=== PATIENT | male | born 1975 | race Caucasian/White ===

== ENCOUNTER 2017-01-22 15:31 | Inpatient (IN) | payer SELFPAY ==
[~2017-01-22] VITALS: Ht 170.2 cm; Wt 61.5 kg
--- NOTE | 2017-01-25 08:25 | CO ---
ADMIT: 01/22/2017 RM/LOC: 303 [facility] MR#: [id number] [facility]#: [id number] 2620 [facility] [address] [place], [place] [address] SAMUEL FAIR 707 [facility] [address] [place] [address] Consultation SEX: M AGE: 41 : 1975 DATE OF CONSULTATION: 01/22/2017 ATTENDING PHYSICIAN: Mamie San CONSULTING PHYSICIAN: Fernandez Cardoza DO REASON FOR CONSULTATION: Hyponatremia, acute kidney injury. HISTORY OF PRESENT ILLNESS: This is a 41-year-old, male patient, who was brought to the Emergency Department after roommate noted that he was having seizure-like activity. The patient reports that he had been lying in bed over the last 2 weeks, not really mobile and has been having some back pain and discomfort. At presentation when Dr. Sna's initial evaluation, he was confused. He is able to answer basic questions in broken Vietnamese. He does use beer and alcohol on a daily basis. He admits to a prior heavy alcohol use. PAST MEDICAL HISTORY: Significant for cataract present in his right eye. MEDICATIONS: No medications reported. REVIEW OF SYSTEMS: He denies any current nausea or vomiting. He reports generalized weakness and shaking in his legs. No chest pain or shortness of breath. PHYSICAL EXAMINATION: GENERAL: He arouses and answers questions. He is cachectic in general appearance. VITAL SIGNS: Show a blood pressure of 170/65, pulse of 101, saturation of 95%. EYES: He does have a right obvious and visible cataract. HEART: Regular. LUNGS: Clear. ABDOMEN: Soft. EXTREMITIES: He has no edema. LABORATORY DATA: His white count 7.3, hemoglobin 7.5, platelets 120,000. His BUN 42, creatinine 5.3, potassium 2.3, CO2 on electrolytes was 38. Serum osmolality of 263, urine osmolality is pending. Alcohol level 16. IMPRESSION: ADMIT: 01/22/2017 RM/LOC: 303 [facility] MR#: [id number] 26[address] [facility] [address] [place], [place] [address] SAMUEL FAIR Tristan [address] [facility] [address] [place] [address] Consultation SEX: M AGE: 41 : 1975 1. Question seizure disorder. 2. Hyponatremia. 3. Hypokalemia. 4. Alcohol with sequelae including anemia, thrombocytopenia, and acute kidney injury. PLAN: He is being admitted to the intensive care unit. Dr. San has made arrangements for alcohol withdrawal precautions. We are going to give him normal saline and monitor his sodium closely. I am also going to give him potassium and recheck his potassium thereafter. We will recheck his creatinine and electrolytes in the morning as well. We will also check amylase, lipase, and a CK. Fernandez Cardoza DO/ lamberto JOB #: [id number] CC: Mamie San, Attending Physician Mamie San, Family Physician
--- NOTE | 2017-01-25 19:49 | HP ---
ADMIT: 01/22/2017 RM/LOC: 303 [facility] MR#: [id number] [facility]#: [id number] 2620 [facility] [address] [place], [place] [address] SAMUEL FAIR 706 [facility] [address] [place] [address] History and Physical SEX: M AGE: 41 : 1975 DATE OF SERVICE: CHIEF COMPLAINT: Seizure or confusion. HISTORY OF PRESENT ILLNESS: This is a 41-year-old, who has been staying with someone and that person reported it looks the patient was having a seizure, so they called 911. The patient was transported here. There is no one with him to give history. On arrival, he was confused, but able to answer some questions. He has been in the ER for about 2 hours now and he is able to answer more questions. He speaks broken Ukrainian. He cannot recall what happened prior to his arrival. He does report to me that he has been drinking about "5 beers a day and some whiskey." He said he has a prior history of much heavier drinking and had stopped for a while and then says "I just started again 2 weeks ago." He said he has been very weak for the last 1-2 weeks. My understanding is that he has been staying at a hotel or someone's house and he says he has been laying in bed, and he gets up to go to the bathroom, but feels shaky where he has not been doing anything else. He said he will drink juice "that is like Gatorade" and the alcohol. He has had things like canned soups or bland foods, but said he does not feel very hungry. He also told me he has not much money, cannot afford the food very often according to how he describes it. The patient said he cannot recall prior seizures. He tells me he has a history of problem with his right eye and he is going to have surgery in a couple of weeks. He goes to the [facility]. He denies any medications denies any other chronic illnesses. He did not know he was anemic, although we have labs from two years ago showing that as well. He is a fairly poor historian. MEDICATIONS: None. ALLERGIES: NONE KNOWN, THE PATIENT WAS UNSURE. SOCIAL HISTORY: He said he has been staying with someone, but has been too weak to work for about a week. He does do some sort of a job, which sounds like construction company. He denies smoking, but reported the alcohol use. Denies other drugs. He said he lived in [place] about 7 years. FAMILY HISTORY: He is unable to give. REVIEW OF SYSTEMS: Limited. GENERAL: Does not think he has had a fever. He mainly says he has been feeling weak for about 1-2 weeks and feels "shaky" when he gets up out of bed" and he has been drinking alcohol and juice. HEENT: Denies any head injury. He says his mouth feels dry. Denies any pain in his mouth. Denies trouble swallowing. He cannot see out of his right eye and describes what sounds like cataract. CARDIOPULMONARY: He reports no chest pain. Denies shortness of breath. GI: He denies feeling sick to his stomach. No vomiting. Denied diarrhea and ADMIT: 01/22/2017 RM/LOC: 303 [facility] MR#: [id number] [address] [address] SAMUEL FAIR [address] [place] [address] [address] [place] [address] History and Physical SEX: M AGE: 41 : 1975 does not report any dark stools when asked specifically. : He said he does not think he has urinated today, but he could not remember. I do not have a history of whether or not he was incontinent when he was confused at home. MUSCULOSKELETAL: He says he feels weak. Describes that his feet "shake and feel weak when I walk." Denies other tremors. Denies pain. NEUROPSYCHIATRIC: He tells me he is not depressed. Denies suicidal thoughts. He does report a chronic alcohol use with intermittent breaks for sobriety. PHYSICAL EXAMINATION: VITAL SIGNS: Blood pressures initially were 120s over 60s and the last one was 140/60. He is afebrile. Pulse in the 90s, oxygen 95% on room air. GENERAL: He is lying quietly on the gurney in no acute distress. HEENT: He has scarred face from acne. He has mild scleral icterus. There is cloudiness of the right pupil. Extraocular movements are normal. No nystagmus. Throat looks dry. Tongue appears a little bit dry up to his lips. He has a very tiny little bruised red maryanne on the tip of his tongue. Tongue extends in the midline. Cranial nerves II through XII appear intact. NECK: With normal carotid upstrokes bilaterally. LUNGS: Sound clear. HEART: Regular. I do not hear any murmur. Belly is flat, thin. I believe I am feeling liver edge right below the costal margin. I do not feel any splenomegaly. He denies pain anywhere in the belly. I do not feel any masses. Bowel sounds present. No inguinal masses. EXTREMITIES: Quite thin, almost cachectic, especially below the knees. He has dry feet and a couple of small little scrapes on his feet. No ulcers. LABORATORY AND X-RAY: White count is 7.3, hemoglobin 7.5, platelet count 120. He has mild microcytic indices, RDW is only 13.6. White count differential is unremarkable. His electrolytes show sodium of 114, potassium 2.3, chloride 52, carbon dioxide is 38, BUN 42, creatinine 5.3, glucose is 156. AST is 42, ALT 20, magnesium 2.5. His anion gap is elevated at 26 and his calcium corrected is 8.1, ethanol level is 16 mg/dL and his serum osmolality is low at 263. EKG showed sinus rhythm with prolonged SC. CT scan of the head was verbally reported to me as normal. ASSESSMENT: 1. Possible seizure. 2. Severe hyponatremia. 3. Acute renal failure. 4. Anemia. 5. Mild thrombocytopenia. 6. History of alcohol abuse. 7. Hypokalemia. PLAN: We will admit him to the ICU and start careful hydration with normal saline. We will monitor electrolytes closely. I am going to consult Nephrology and Dr. Fernandez Cardoza is covering. We will use alcohol withdrawal ADMIT: 01/22/2017 RM/LOC: 303 [facility] MR#: [id number] [address] [address] SAMUEL FAIR 707 [facility] [address] [place] [address] History and Physical SEX: M AGE: 41 : 1975 protocol. Regarding his anemia, I will check ferritin, B12, and serum iron. We will follow his blood count. I am concerned as he is hydrated that this hemoglobin will actually drop lower as it equilibrates. His glucose is little bit elevated, so we will check an A1c. He appears malnourished and albumin is 2.2. Again, we will monitor his intake as he is stabilizing, we will allow him to eat. For now, I will keep him n.p.o. Overall, he has the appearance of metabolic disorder likely secondary to chronic alcohol abuse. His liver enzymes are not elevated, but he has low platelets, anemia. We will alter the plan depending on hospital course. I did find some old labs from September of 2015 that were done here in the emergency room. Those included liver enzymes which were just slightly elevated including AST of 63, and GGT was high at 1407. His potassium then was 3.6, sodium was 135, creatinine was 1.1, and his hemoglobin at that time was 9.3 with a normal platelet count of 262. He also had hepatitis C and HIV testing done, which were all negative. We will try to obtain records from the [facility] in the morning. Mamie San MD/ lamberto JOB #: [id number] CC: Mamie San, Attending Physician Mamie San, Family Physician
[2017-01-27] MEDS ORDERED: CATAPRES-DPS0.2 MG PO (19:36)
[2017-01-27] MEDS ORDERED: CARDIZEM CD DP120 MG PO (19:37)
[2017-01-27] MEDS ORDERED: PEPCID DPS20 MG PO (19:37)
[2017-01-27] MEDS ORDERED: THERAPEUTIC MUL1 TAB PO (19:37)
[2017-01-27] MEDS ORDERED: B-COMPLEX PO (19:38)
[2017-01-27] MEDS ORDERED: FEOSOL-DPS325 MG PO (19:38)
[2017-01-27] MEDS ORDERED: TYLENOL DPS325 MG PO (19:38)
--- NOTE | 2017-02-11 21:33 | ER ---
ADMIT: 01/22/2017 RM/LOC: ER [facility] MR#: [id number] 2620 [facility] [address] [place], [place] [address] SAMUEL FAIR 707 [facility] [address] [place] [address] Emergency Room Report SEX: M AGE: 41 : 1975 DATE: 01/22/2017 HISTORY OF PRESENT ILLNESS: A 41-year-old, [facility], transferred to the Emergency Department from his residence after apparently having a seizure. He appears somewhat confused, perhaps postictal. We are unable obtain a thorough history from him. He does admit to drinking, but again he appears confused, postictal. He apparently was combative in the ambulance requiring Haldol. PHYSICAL EXAMINATION: GENERAL: Reveals a 41-year-old gentleman with some fresh blood on his lips. He is alert. HEENT: Head is atraumatic. He does have a cataract in the right eye. There is abrasion to the right buccal area of his mouth. TMs are normal. Pharynx appears normal. NECK: Supple. LUNGS: Clear to auscultation, CARDIOVASCULAR: No murmur. Tachycardia noted. ABDOMEN: Soft, nontender. Bowel tones are present. SKIN: Unremarkable. EXTREMITIES: Atraumatic. NEUROLOGICAL: He is disoriented to time and situation. Complete neurologic exam was not able to be done as he was somewhat uncooperative. EMERGENCY ROOM COURSE: A CBC and CMP were obtained. The results of which were significant for sodium of 114, and potassium of 2.3, and BUN of 42, creatinine of 5.6. His hemoglobin was 7.5, and platelets 120,000. CT scan of the head shows no acute findings. The patient is being admitted. 1. Acute renal failure. 2. Seizure likely secondary to hyponatremia. 3. Anemia. 4. Hypokalemia. 5. Thrombocytopenia. Ant Stone MD/ lamberto JOB #: [id number] CC: Shravan Terrazas MD, Attending Physician UNKNOWN, Family Physician
--- NOTE | 2017-02-24 06:44 | DS ---
ADMIT: 01/22/2017 RM/LOC: 427 [facility] MR#: [id number] [facility]#: [id number] [address] [address] SAMUEL FAIR [address] [place] [address] General Discharge Summary SEX: M AGE: 41 : 1975 ADMISSION DATE: 01/22/2017 DISCHARGE DATE: 01/26/2017 FINAL DIAGNOSES: 1. Chronic alcohol abuse and secondary metabolic encephalopathy. 2. Malnutrition, moderate. 3. Severe hyponatremia. 4. Acute renal failure. 5. Thrombocytopenia related to alcohol abuse. 6. Chronic anemia. The patient was admitted after an acquaintance observed him having some shaking activity and was concerned about seizure. He was brought in by squad. There was no next of kin, and the patient was unable to give history. On arrival, he appeared dehydrated. Sodium was only 114. Creatinine was 5.3. I consulted Nephrology for assistance with fluid and electrolyte management. He had hemoglobin of 7.5. On the following morning, he had had no witnessed seizure activity and was much more alert, feeling thirsty. We will let him start clear liquids. His sodium was up to 119 and potassium 2.9, and his creatinine was down to 4.6. We continued sodium replacement and fluid replacement for the acute kidney injury. We also continued alcohol withdrawal protocol, which had been instituted at admission. The patient met with [facility] supervisor channel process on 2nd hospital day and reported that he had been drinking up to a liter of liquor daily over the last 2 weeks. Prior to that, he had been clean for a few months, but has a long history of alcohol abuse otherwise. His plan was to go live with his brother in [place], and he did not want to pursue any treatment here locally in [place]. On 01/25, Nephrology recommended consider kidney biopsy due to findings on ultrasound, and the patient's acute kidney injury. The patient stated he did not want to do so and voiced that he understood if he had kidney disease and was not treated that could be fatal. We had long discussion, and he stated he would follow up as an outpatient. Appointment was set for [address] [facility]. Social Work worked with the patient and set up his medications. DISCHARGE MEDICATIONS: On dismissal, medications are: 1. Catapres 0.2 mg every 8 hours, ordered for #90 with 2 refills was given. 2. Also, Pepcid 20 mg daily. 3. Multivitamin daily. ADMIT: 01/22/2017 RM/LOC: 427 [facility] MR#: [id number] [address] [address] MARV, SAMUEL Tristan [address] [place] [address] General Discharge Summary SEX: M AGE: 41 : 1975 4. He can take B complex vitamin daily. 5. I also started him on Cardizem 120 mg daily for elevated blood pressures. He is to follow up at [facility] or with myself at [facility], and those appointments are pending as Social Work at this time to set up. The patient was also given my clinic number to call with any questions or concerns. I do note that we offered different means of followup and further evaluation, and he stated he would consider his options, but likely was going to move to [place]. I told him I am afraid he might not pursue any further medical care, and he promised that he would. He does have written appointment times and said he understands how to reach me and how to get to the [facility]. Mamie San MD/ lamberto JOB #: [id number] CC: Mamie San MD, Attending Physician Mamie San MD, Family Physician
== END 2017-01-26 13:15 | disposition home or self-care (01) | DRG 682 ==
LOC: ER 15:31 → 3ICU 16:45 → 4PCU 01-24 19:08
PROVIDERS: ADMIT Family Medicine
PROC: HZ2ZZZZ Detoxification Services for Substance Abuse Treatment (ICD-10-PCS; principal; 2017-01-22)
DX: N17.0 Acute kidney failure with tubular necrosis (principal); G93.40 Encephalopathy, unspecified; D69.2 Other nonthrombocytopenic purpura; D69.6 Thrombocytopenia, unspecified; E44.0 Moderate protein-calorie malnutrition; E87.1 Hypo-osmolality and hyponatremia; R56.9 Unspecified convulsions; E86.0 Dehydration; N18.3 Chronic kidney disease, stage 3 (moderate); E83.39 Other disorders of phosphorus metabolism; D64.9 Anemia, unspecified; F10.10 Alcohol abuse, uncomplicated; E87.6 Hypokalemia

== ENCOUNTER 2017-02-22 12:00 | Emergency (ER) | payer SELFPAY ==
[~2017-02-22 12:00] MED LIST: B-COMPLEX PO; CARDIZEM CD DP120 MG PO; CATAPRES-DPS0.2 MG PO; FEOSOL-DPS325 MG PO; PEPCID DPS20 MG PO; THERAPEUTIC MUL1 TAB PO; TYLENOL DPS325 MG PO
--- NOTE | 2017-03-11 08:17 | ER ---
ADMIT: 02/22/2017 RM/LOC: [facility] MR#: [id number] [address] [place] [id number] SAMUEL FAIR [address] [place] [id number] Emergency Room Report SEX: M AGE: 41 : 1975 DATE: 02/22/2017 ADDENDUM: CHIEF COMPLAINT: Seeks alcohol detox. HISTORY OF PRESENT ILLNESS: This is a 41-year-old male who did go through treatment, but he has been drinking again for the last 3 weeks. He says he drinks only about 8 beers a day, only drank a couple today, but again wants to detox. He denies any pain, denies any trauma to himself. PAST MEDICAL HISTORY: None. MEDICATIONS: None. ALLERGIES: NO KNOWN ALLERGIES. SOCIAL HISTORY: Denies any tobacco or drug use but does drink alcohol daily. FAMILY HISTORY: Noncontributory. REVIEW OF SYSTEMS: CONSTITUTIONAL: Denies any fevers, chills, or sweats. CARDIOVASCULAR and RESPIRATORY: Denies any chest pain or shortness of breath. GI and : Denies any nausea, vomiting, or diarrhea. MUSCULOSKELETAL: Denies any pain to his any extremities. All systems otherwise negative. PHYSICAL EXAMINATION: VITAL SIGNS: Blood pressure is 103/71; pulse is 97; respirations 18; temperature is 98.3, tympanic; saturation of oxygen is 99% on room air. GENERAL APPEARANCE: The patient in no acute distress and alert. HEENT: No signs of trauma to the head. Pharynx is moist. No tonsillar swelling ADMIT: 02/22/2017 RM/LOC: [facility] MR#: [id number] [address] [place] [id number] SAMUEL FAIR [address] [place] [address] Emergency Room Report SEX: M AGE: 41 : 1975 or exudate. HEART: Regular rate and rhythm. LUNGS: CTA bilateral. ABDOMEN: Soft, nontender to palpation. SKIN: Normal color, warm, and dry. No rashes noted. No signs of trauma. EXTREMITIES: No signs of trauma. Full range of motion. Due to him being asymptomatic and only seeking detox, I did call [facility], they have a male bed available. He will go to [facility] detox Center from here. No labs were done prior to discharge. CLINICAL IMPRESSION: Alcohol abuse, seeks detox. JOSE MIGUEL Calderon / Matt Buck MD / modl JOB #: [id number] CC: Matt Buck MD, Attending Physician Mario Simpson MD, Family Physician
== END 2017-02-22 12:41 | disposition home or self-care (01) ==
LOC: ER 12:00
DX: F10.10 Alcohol abuse, uncomplicated (principal)

== ENCOUNTER 2017-02-23 08:32 | Inpatient (IN) | payer OTHER ==
[~2017-02-23] VITALS: Ht 170.2 cm; Wt 62.2 kg
--- NOTE | 2017-02-24 11:09 | CO ---
ADMIT: 02/23/2017 RM/LOC: 424 [facility] MR#: [id number] [facility]#: [id number] [address] [address] SAMUEL FAIR [address] [address] Consultation SEX: M AGE: 41 : 1975 DATE OF CONSULTATION: 02/23/2017 ATTENDING PHYSICIAN: Felice Abreu CONSULTING PHYSICIAN: Benita Wong MD REASON FOR CONSULTATION: Hyponatremia and hypokalemia. HISTORY OF PRESENT ILLNESS: The patient is a 41-year-old gentleman, who was recently admitted to the hospital with hyponatremia secondary to alcohol abuse as well as acute renal failure. His discharge serum creatinine was around 4.5. His serologic workup was negative, and he had refused diagnostic kidney biopsy since the chronicity of his renal failure is unclear. He has been out for only a few weeks. He states that he started drinking about 2 weeks ago. He has been drinking at least a 6 pack of beer every day. He went to [facility] today and was noted to be hypotensive, and he was sent over here for further evaluation. He is admitted now with hyponatremia as well as hyperkalemia. His creatinine is also elevated to 5.7. He denies any cardiac or respiratory complaints. He notes that he has been making urine. He denies any [id number] medications. He denies any other substance abuse, although his urine was positive for benzodiazepines. REVIEW OF SYSTEMS: A complete review of systems is negative in detail except as mentioned in history of present illness above. PAST MEDICAL HISTORY: Recent hospitalization for alcohol abuse, hyponatremia as well as hypokalemia. He has renal failure as well. ALLERGIES: NO KNOWN DRUG ALLERGIES. MEDICATIONS: He denies taking any medications on outpatient over the last 1 week. He reports that he was on a blood pressure medication that made him itch, and he stopped taking it. His recent discharge medication list included: 1. Clonidine. 2. Famotidine. 3. Multivitamin. 4. Diltiazem. 5. Ferrous sulfate. 6. Acetaminophen. 7. Vitamin B complex. SOCIAL HISTORY: He continues to drink alcohol on a daily basis. He has a girlfriend, but he has not worked since he has left the hospital recently. Denies any tobacco use. FAMILY HISTORY: Denies any family history of chronic kidney disease or renal replacement therapy. ADMIT: 02/23/2017 RM/LOC: 424 [facility] MR#: [id number] [address] [address] SAMUEL FAIR [facility] [place] [address] Consultation SEX: M AGE: 41 : 1975 PHYSICAL EXAMINATION: VITAL SIGNS: Temperature 99.1 Fahrenheit, pulse 80, blood pressure 134/85, saturating 100% on room air. GENERAL: He is comfortable. HEENT: Head is nontraumatic and normocephalic. Pale conjunctivae. Dry mucosa. CHEST: Clear to auscultation. CVS: Regular. S1, S2 heard. No rubs, murmurs, or gallops. ABDOMEN: Soft and nontender. EXTREMITIES: No edema. SKIN: No rash or nodules. LABORATORY DATA: 1. Reviewed. BMP with sodium 118, potassium 2.7, creatinine 5.7, CO2 is 39. Hemoglobin is 10.1. Calcium 7.9, magnesium 2.6. 2. Urinalysis with 4+ protein, 1+ blood, and negative leukocyte esterase. He has hyaline casts in his urine. Urine tox was positive for benzodiazepines. ASSESSMENT AND PLAN: 1. Acute kidney injury-kidney function is worse than his discharge. He did not follow up with me as an outpatient. Serologic workup has been negative previously. No emergent renal replacement therapy needs, but monitor kidney function moving forward. 2. Hypokalemia-replete with IV potassium supplements. 3. Hyponatremia-likely secondary to decreased oral intake and alcohol abuse. Check serum osmolality. I will put him on fluid restriction and monitor his sodium levels. Thank you for this consultation. Benita Wong MD/ lamberto JOB #: [id number] CC: Felice Abreu, Attending Physician Felice Abreu, Family Physician
--- NOTE | 2017-03-03 09:00 | ER ---
ADMIT: 02/23/2017 RM/LOC: 424 [facility] MR#: [id number] [address] [address] SAMUEL FAIR [address] [place] [address] Emergency Room Report SEX: M AGE: 41 : 1975 DATE: 02/23/2017 TIME: 0832 hours. Please refer to my T-sheet for complete H and P. Briefly, the patient is a 41-year-old who has a known history of alcohol abuse. He was in the hospital recently for acute renal failure and hyponatremia and alcohol abuse. He has been out for 3 or 4 weeks. He has been drinking everyday for about 2 weeks. Again he went in to [facility], they did some blood tests on him, noticed his pressure was low, sent him over here. PHYSICAL EXAM: VITAL SIGNS: Here blood pressure 116/76, pulse 97, respirations 18, temp 97.7, and sat 97%. GENERAL: No acute distress. HEENT: Grossly normal. LUNGS: Clear. HEART: Regular. ABDOMEN: Soft. SKIN: No rash. NEURO: He is alert, oriented, nonfocal. EMERGENCY DEPARTMENT COURSE: I gave him 500 mL normal saline bolus. His CBC came back normal except his white count was 10.8, hemoglobin 10.1. Chemistries normal except sodium 118, potassium 2.9, CO2 of 39, BUN 50, glucose 155, creatinine 5.7. UA showed 70 glucose and 4+ protein. Tox screen is positive for benzos. Alcohol level was 0. We gave him 40 mEq potassium chloride p.o., again we gave him 500 mL normal saline bolus. I talked to Dr. Abreu. We are going to admit him back to the hospital. ASSESSMENT: 1. Hyponatremia. 2. Hypokalemia. 3. Acute renal failure on top of his chronic renal insufficiency that he has. Last time he was here he was in the 4s. 4. EtOH abuse. 5. Malnourished. PLAN: Admit to the hospital. Wood Guthrie MD/ lamberto JOB #: [id number] CC: Felice Abreu MD, Attending Physician Felice Abreu MD, Family Physician
--- NOTE | 2017-03-05 21:00 | HP ---
ADMIT: 02/23/2017 RM/LOC: 424 [facility] MR#: [id number] [facility]#: [id number] [address] [id number] SAMUEL FAIR [address] [address] History and Physical SEX: M AGE: 41 : 1975 DATE OF SERVICE: CHIEF COMPLAINT: Alcohol detox. HISTORY OF PRESENT ILLNESS: The patient is a 41-year-old, male, recently was admitted for alcohol withdrawal, had some withdrawal seizures, was seen in the ER yesterday, was sent to [facility] for detox. He had some hypotension, dizziness. Did some blood work on him which was grossly abnormal, was sent to the ER, found to be hyponatremic, hypokalemic, had persisting anemia. Denies any real specific concerns or complaints today. Denies any falls, any injuries. States he has not been taking his blood pressure meds for several days. Denies any other concerns or complaints at this time. PAST MEDICAL HISTORY: Alcohol abuse, withdrawal seizures, hyponatremia, acute renal failure, anemia, cataract. PAST SURGICAL HISTORY: The patient denies. ALLERGIES: NONE. MEDICATIONS: 1. Ferrous sulfate 325 daily. 2. Clonidine 0.2 q.8. States he has not been taking. 3. Famotidine 20 daily. 4. Diltiazem 120 b.i.d. States he has not been taking. 5. Multivitamin daily .. FAMILY HISTORY: The patient denies. REVIEW OF SYSTEMS: He denies fevers, chills, chest pain, shortness of breath, headaches, nausea, vomiting, numbness, tingling, melena or vision changes. SOCIAL HISTORY: Significant alcohol abuse. Denies any drugs, tobacco. Has girlfriend at the bedside. He has one child. OBJECTIVE: VITAL SIGNS: Temp 99.1, pulse 80, respirations 16, blood pressure is 130-150 over 80-90, O2 saturation 100%. GENERAL: He is alert, awake, oriented, no acute distress. HEENT: Pupils are round, reactive to light, malnourished. HEART: Regular rate and rhythm. LUNGS: Clear to auscultation bilaterally. ABDOMEN: Soft, nontender, and nondistended. EXTREMITIES: No clubbing, cyanosis, or edema. NEURO: Cranial nerves II through XII are grossly intact. No focal, motor, or sensory deficits. LABORATORY DATA: Sodium 118, potassium 2.7, chloride 63, CO2 is 39, BUN 50, glucose 188, creatinine 5.7, calcium 7.9, bilirubin is 1.2, total protein is ADMIT: 02/23/2017 RM/LOC: 424 [facility] MR#: [id number] [address] [id number] [facility] [address] [place] [address] History and Physical SEX: M AGE: 41 : 1975 8, albumin is 2.7, alkaline phosphatase 52, AST is 32, ALT is 218, mag is 2.6. Blood alcohol was not detected. Urine drug screen is positive for benzo's. CBC shows a white count of 10.8, hemoglobin 10.1, platelets 209. UA shows 4+ protein, 70 glucose, 34 rbc's. ASSESSMENT: A 41-year-old male with: 1. Alcohol abuse. 2. Hyponatremia. 3. Hypokalemia. 4. Renal failure. 5. History of alcohol withdrawal seizures. 6. Hypertension. 7. Anemia. 8. Gastroesophageal reflux disease. PLAN: We will admit him to the alcohol withdrawal protocol. Appreciate Nephrology input. He denies any problems with heart rhythms in the past. We will hold his blood pressure medications for now, put him on seizure precautions. He has a low threshold to be rather aggressive with benzo's etc. Felice Abreu MD/ lamberto JOB #: [id number] CC: Felice Abreu, Attending Physician Felice Abreu, Family Physician
--- NOTE | 2017-04-12 09:03 | DS ---
ADMIT: 02/23/2017 RM/LOC: 424 [facility] MR#: [id number] [facility]#: [id number] [address] [address] SAMUEL FAIR [address] [address] General Discharge Summary SEX: M AGE: 41 : 1975 ADMISSION DATE: 02/23/2017 DISCHARGE DATE: 02/28/2017 DISCHARGE DIAGNOSES: Include: 1. Alcohol abuse. 2. Malnutrition. 3. Hyponatremia. 4. Renal failure. 5. Thrombocytopenia. 6. Anemia. 7. Hypokalemia. 8. Possible seizures. 9. Hypertension. 10.Gastroesophageal reflux disease. 11.Fever. 12.Prolonged QTc. HISTORY OF PRESENT ILLNESS: Please refer to admission H and P dated 02/23/2017. CONSULTANTS: Renal. HOSPITAL COURSE: The patient was admitted, started on the alcohol withdrawal protocol. Renal was consulted. He is on a fluid restriction. Given seizure precautions. His home diltiazem was restarted as well as home iron. The patient did not require Ativan. The patient started spiking temps. UA and chest x-ray was checked. The patient was started on Rocephin. Blood cultures were checked. On 02/28/2017, the patient was determined safe for discharge with close followup. PROCEDURES: None. MEDICATIONS: Please see discharge MAR. 1. Cardizem 120 t.i.d. 2. Feosol 325 daily. 3. Pepcid 20 daily. 4. Multivitamin 1 daily. 5. Tylenol q.4 p.r.n. LABORATORY DATA: On 02/28/2017; white count 8.4, hemoglobin 9.5, and platelets 113. On 02/26; white count 7.5, hemoglobin 10.4, and platelets 131. On 02/23; white count 10.8, hemoglobin 10.1, and platelets 209. UA showed 4+ protein, 78 glucose, 1+ blood, 34 rbc's. Hemoccult negative x2. On 02/26/2017; sodium 134, potassium 3.8, chloride 96, CO2 of 28, BUN 71, glucose 127, creatinine 5.9, calcium is 7.3, bilirubin is 0.4, TPR was 6.3, albumin 2.1, and alkaline phosphatase 376. On 02/24; sodium 126, potassium 3.5, chloride 84, CO2 of 29, BUN 54, glucose 195, creatinine 5.6, calcium 7. Procalcitonin on 02/25/2017 is 0.53. On 02/23/2017; sodium 118, potassium 2.7, chloride 63, CO2 of 39, BUN 50, glucose 188, creatinine 5.7, calcium ADMIT: 02/23/2017 RM/LOC: [address] [place] [address] MR#: [id number] [address] [id number] [place] [address] General Discharge Summary SEX: M AGE: 41 : 1975 10.9, alkaline phosphatase 252, and albumin 2.7. Ionized calcium on 02/24/2017, 0.94 and 0.91. Urine osm on 02/23/2017 was 262. Haptoglobin on 02/24/2017 was 149. Urine sodium on 02/23/2017, 26. Blood alcohol not detected on 02/23/2017. UA showed 3+ blood, 150 glucose, 2+ blood, and 2+ leuks. Blood cultures no growth after 5 days x2. Urine culture, no growth. Chest x-ray normal on 02/25/2017, negative 02/27/2017. EKG shows prolonged QT interval, LVH, diffuse ST abnormality may be hypertrophy or ischemia, nonspecific T-wave changes. Followup is with [facility] in [address] Wong in 2 to 3 weeks. Felice Abreu MD/ lamberto JOB #: [id number] CC: Felice Abreu MD, Attending Physician Felice Abreu MD, Family Physician . [facility] Benita Wong MD
== END 2017-02-28 11:09 | disposition home or self-care (01) | DRG 683 ==
LOC: ER 08:32 → 4PCU 10:12
PROVIDERS: ADMIT Family Medicine
PROC: HZ2ZZZZ Detoxification Services for Substance Abuse Treatment (ICD-10-PCS; principal; 2017-02-23)
PROC: 30233N1 Transfusion of Nonautologous Red Blood Cells into Peripheral Vein, Percutaneous Approach (ICD-10-PCS; 2017-02-25)
DX: N17.9 Acute kidney failure, unspecified (principal); E87.1 Hypo-osmolality and hyponatremia; I95.9 Hypotension, unspecified; D69.6 Thrombocytopenia, unspecified; E46 Unspecified protein-calorie malnutrition; I45.81 Long QT syndrome; F10.239 Alcohol dependence with withdrawal, unspecified; D64.9 Anemia, unspecified; K21.9 Gastro-esophageal reflux disease without esophagitis; E87.6 Hypokalemia; N18.9 Chronic kidney disease, unspecified; I12.9 Hypertensive chronic kidney disease with stage 1 through stage 4 chronic kidney disease, or unspecified chronic kidney disease

== ENCOUNTER → 2017-03-25 | Outpatient (CLI) | payer SELFPAY | END | disposition home or self-care (01) | LOC: PTH.S 03-24 16:15 | DX: N17.9 Acute kidney failure, unspecified (principal); N18.5 Chronic kidney disease, stage 5 ==